=== PATIENT | male | born 1970 | race Asian ===

== ENCOUNTER 2017-12-18 12:46 | Emergency (ER) | payer BC ==
[~2017-12-18] VITALS: Ht 177.8 cm; Wt 79.5 kg
[2017-12-18] MEDS ORDERED: MOTRIN600 MG PO (13:50)
[2017-12-18 14:19] VITALS: BP 120/96
== END 2017-12-18 14:19 | disposition home or self-care (01) ==
LOC: EDBD 12:46 → EME 12:46
DX: S83.8X1A Sprain of other specified parts of right knee, initial encounter (principal); X50.9XXA Other and unspecified overexertion or strenuous movements or postures, initial encounter; Y93.67 Activity, basketball
CPT/HCPCS: 73564; 99281; 99283